=== PATIENT | female | born 1990 | race Caucasian/White ===

== ENCOUNTER 2018-08-18 15:16 | Emergency (ER) | payer OTHER, SELFPAY ==
[2018-08-18 15:23] VITALS: BP 102/56; PULSE 61; RESP 20; TEMP 36.4; O2SAT 100; BMI 28.9
[2018-08-18 15:29] VITALS: BP 102/56; PULSE 61; RESP 20; TEMP 36.4; O2SAT 100; BMI 28.9
--- NOTE | 2018-08-18 15:50 | HMH.EDUTC ---
[facility] [place] Disposition Clinical Impression: Dental abscess, Pain due to dental caries Disposition: Home, Self-Care Condition on Discharge: Good Instructions: Tooth Decay, Tooth Abscess, DI for Dental Pain Additional Instructions: Take medication as prescribed *Call Dr Connelly and try to make appointment for further evaluation and treatment of dental abscess and pain Return if needed Straight to ER if any life threatening symptoms Follow up with family doctor if needed Over the counter Motrin and Tylenol for pain and fever as directed on bottle Prescriptions: Penicillin V Potassium 500 mg PO Q6H 10 Days #40 tab Referrals: Provider,Referral, [Primary Care Provider] - As needed Newton Connelly [Referring] - (call and make appointment) Time of Disposition: 16:02 Medical Decision Making - Paul Inquiry Pt receiving controlled substance: No Paul was queried for this patient: No Vital Signs: 08/18/18 15:23 08/18/18 15:29 Temperature 97.6 F 97.6 F Temperature Source Oral Oral Pulse Rate [Left Radial] 61 61 Respiratory Rate 20 20 Blood Pressure [Right Arm] 102/56 L 102/56 L Blood Pressure Mean [Right Arm] 71 71 Blood Pressure Source [Right Arm] Automatic Cuff Automatic Cuff Blood Pressure Position [Right Arm] Sitting Sitting 02 Sat by Pulse Oximetry 100 100 Oxygen Delivery Method Room Air Room Air Orders (Tests/Meds): ED MEDICATIONS Discontinued Medications Generic Name Dose Route Start Last Admin Trade Name Heq PRN Reason Stop Dose Admin Benzocaine/Butamben/Tetracaine HCl 1 gm 08/18/18 15:50 08/18/18 16:01 Cetacaine [place] TP 08/18/18 15:51 1 gm ONCE ONE Administration Lidocaine HCl 15 ml 08/18/18 15:50 08/18/18 16:01 Lidocaine 2% Viscous Solution 15ml Udc PO 08/18/18 15:51 15 ml ONCE ONE Administration [facility] [place] HPI - General Stated complaint: Tooth Pain Time Seen by Provider: 08/18/18 15:40 Mode of Arrival: Family Vehicle Source of Information: Patient Limitations: No Limitations Description of Symptoms (Recalled from Triage Doc. by RN): c/o right sided tooth pain HEENT Symptoms (Recalled from RN notes): Yes Resp Symptoms (Recalled from RN notes): No Skin Symptoms (Recalled from RN notes): No MS Symptoms (Recalled from RN notes): No Functional Status (Recalled from RN notes): N/A - History of Present Illness Provider Complaint: Patient state that her teeth on the top are broken off at the gumline State that she has been having dental pain along with swelling and redness in her gums State that she thinks they area getting infected State that she hasn't had any insurance to get them worked on - Related Data Home Medications Medication Instructions Recorded Confirmed Buspirone HCl [Buspar 5mg tablet] 5 mg PO BID 08/18/18 08/18/18 Citalopram Hydrobromide [Celexa] 30 mg PO DAILY 08/18/18 08/18/18 risperiDONE [Risperdal 0.5mg 0.5 mg PO BID 08/18/18 08/18/18 tablet] Previous Rx's Medication Instructions Recorded Penicillin V Potassium 500 mg PO Q6H 10 Days #40 tab 08/18/18 Allergies Allergy/AdvReac Type Severity Reaction Status Date / Time No Known Allergies Allergy Verified 08/18/18 15:32 - Worker's Comp Is this a Worker's Comp case?: No [facility] History - Hepatitis A Screen Drug use history?: No High risk sexual behaviors?: No History of sexually transmitted infection?: No Currently employed?: No Childcare worker?: No Do you have indoor plumbing?: Yes Do you have electricity?: Yes Attestation statement:: This patient has been screened for Hepatitis A risk factors. I have reviewed the patient's past medical history: Yes Laterality Cases: Bilateral: Tonsillectomy - Social History Smoking Status: Current every day smoker Tobacco Type: cigarettes # Packs/Day (cigarettes): 1 Alcohol Intake: never Occupational Status: other - Psychiatric History Expresses thoughts of harming self/others: None Suicide Plan Description: No Plan ROS Obtained: Alex
--- NOTE | 2018-08-18 15:53 | ED_ITS ---
[facility] [place] Disposition Clinical Impression: Dental abscess, Pain due to dental caries Disposition: Home, Self-Care Condition on Discharge: Good Instructions: Tooth Decay, Tooth Abscess, DI for Dental Pain Additional Instructions: Take medication as prescribed *Call Dr Connelly and try to make appointment for further evaluation and treatment of dental abscess and pain Return if needed Straight to ER if any life threatening symptoms Follow up with family doctor if needed Over the counter Motrin and Tylenol for pain and fever as directed on bottle Prescriptions: Penicillin V Potassium 500 mg PO Q6H 10 Days #40 tab Referrals: Provider,Referral, [Primary Care Provider] - As needed Newton Connelly [Referring] - (call and make appointment) Time of Disposition: 16:02 Medical Decision Making - Paul Inquiry Pt receiving controlled substance: No Paul was queried for this patient: No Vital Signs: 08/18/18 15:23 08/18/18 15:29 Temperature 97.6 F 97.6 F Temperature Source Oral Oral Pulse Rate [Left Radial] 61 61 Respiratory Rate 20 20 Blood Pressure [Right Arm] 102/56 L 102/56 L Blood Pressure Mean [Right Arm] 71 71 Blood Pressure Source [Right Arm] Automatic Cuff Automatic Cuff Blood Pressure Position [Right Arm] Sitting Sitting 02 Sat by Pulse Oximetry 100 100 Oxygen Delivery Method Room Air Room Air Orders (Tests/Meds): ED MEDICATIONS Discontinued Medications Generic Name Dose Route Start Last Admin Trade Name Heq PRN Reason Stop Dose Admin Benzocaine/Butamben/Tetracaine HCl 1 gm 08/18/18 15:50 08/18/18 16:01 Cetacaine [place] TP 08/18/18 15:51 1 gm ONCE ONE Administration Lidocaine HCl 15 ml 08/18/18 15:50 08/18/18 16:01 Lidocaine 2% Viscous Solution 15ml Udc PO 08/18/18 15:51 15 ml ONCE ONE Administration [facility] [place] HPI - General Stated complaint: Tooth Pain Time Seen by Provider: 08/18/18 15:40 Mode of Arrival: Family Vehicle Source of Information: Patient Limitations: No Limitations Description of Symptoms (Recalled from Triage Doc. by RN): c/o right sided tooth pain HEENT Symptoms (Recalled from RN notes): Yes Resp Symptoms (Recalled from RN notes): No Skin Symptoms (Recalled from RN notes): No MS Symptoms (Recalled from RN notes): No Functional Status (Recalled from RN notes): N/A - History of Present Illness Provider Complaint: Patient state that her teeth on the top are broken off at the gumline State that she has been having dental pain along with swelling and redness in her gums State that she thinks they area getting infected State that she hasn't had any insurance to get them worked on - Related Data Home Medications Medication Instructions Recorded Confirmed Buspirone HCl [Buspar 5mg tablet] 5 mg PO BID 08/18/18 08/18/18 Citalopram Hydrobromide [Celexa] 30 mg PO DAILY 08/18/18 08/18/18 risperiDONE [Risperdal 0.5mg 0.5 mg PO BID 08/18/18 08/18/18 tablet] Previous Rx's Medication Instructions Recorded Penicillin V Potassium 500 mg PO Q6H 10 Days #40 tab 08/18/18 Allergies Allergy/AdvReac Type Severity Reaction Status Date / Time No Known
[2018-08-18 16:02] VITALS: BP 102/56; PULSE 61; RESP 20; TEMP 36.4; O2SAT 100
== END 2018-08-18 16:04 | disposition home or self-care (01) ==
PROVIDERS: Emergency Provider Nurse Practitioner
DX: K04.7 Periapical abscess without sinus (principal); F17.210 Nicotine dependence, cigarettes, uncomplicated
CPT/HCPCS: 99201

== ENCOUNTER 2022-02-07 09:49 | Emergency (ER) | payer MEDICAID, SELFPAY ==
[2022-02-07 09:51] VITALS: BP 120/81; PULSE 92; RESP 18; TEMP 36.8; O2SAT 100; BMI 31.1
--- NOTE | 2022-02-07 10:17 | PC.NURSE ---
1010 ED MD AT BEDSIDE
--- NOTE | 2022-02-07 10:25 | PC.NURSE ---
POST VOID BLADDER SCAN RESULTS 0
[2022-02-07 11:10] VITALS: BP 120/76; PULSE 84; RESP 17; TEMP 36.8; O2SAT 100
--- NOTE | 2022-02-07 11:17 | HMH.EDGENADL ---
Discharge Plan Disposition Patient Disposition: Home, Self-Care Condition: Fair Prescriptions Prescriptions: New gabapentin 100 mg capsule 100 mg PO TID PRN (Reason: pain) Qty: 30 0RF methocarbamol 750 mg tablet 750 mg PO Q6 PRN (Reason: Muscle Spasm) Qty: 30 0RF prednisone 20 mg tablet 20 mg PO DAILY Qty: 18 0RF Rx Instructions: Take 3 tablets daily for 3 days followed by 2 tablets daily for 3 days followed by 1 tablet daily for 3 days No Action buspirone 5 MG tablet 5 mg PO BID citalopram 20 MG tablet 30 mg PO DAILY risperidone 0.5 MG tablet 0.5 mg PO BID penicillin V potassium 500 MG tablet 500 mg PO Q6H 10 Days Qty: 40 0RF Referrals Follow up/Referrals: Provider,Referral, MD [Primary Care Provider] - See instructions Activity Restrictions/Add. Instructions Additional Instructions/Restrictions: Recommend that you call your primary care physician and talk about physical therapy versus imaging to evaluate for possible herniated disc. Clinical Impressions Clinical Impression: Acute lumbar radiculopathy Instructions Patient Instructions: DI for Lumbar Radiculopathy Discharge ED Provider: Aly Davies General Adult HPI General Chief complaint: PAIN Stated complaint: pain in Lt leg, numbness Time Seen by Provider: 02/07/22 10:00 Mode of Arrival: Ambulatory Limitations: No Limitations Description of Symptoms (Recalled from ER Triage Doc. by RN): BILATERAL UPPER LEG PAIN X 1 WEEK, NO ACCIDENT OR INJURY. PAIN GREATER ON LEFT THAN RIGHT History of Present Illness HPI narrative: Patient is a 32-year-old female who presents with leg pain. She states that about a week ago she started to get some left-sided upper leg pain. She says it is gotten a little bit worse and seems to be going down to about her knee now. She says that she was more concerned because she started getting numbness in that area as well and the numbness goes down the outside of her left leg on the top of her foot. She says that she has some minimal symptoms on the right side but it really seems to be more on the left. She denies any difficulty with ambulation. She describes the pain as a burning sensation. Denies any back pain. Denies any trauma. Denies any bowel or bladder incontinence. Denies any saddle anesthesia. Related Data Home Medications Medication Instructions Recorded Confirmed buspirone 5 mg tablet 5 mg PO BID Anxiety 08/18/18 08/18/18 citalopram 20 mg tablet 30 mg PO DAILY Depression 08/18/18 08/18/18 risperidone 0.5 mg tablet 0.5 mg PO BID Anxiety 08/18/18 08/18/18 Previous Rx's Medication Instructions Recorded penicillin V potassium 500 mg 500 mg PO Q6H 10 days #40 tabs 08/18/18 tablet gabapentin 100 mg capsule 100 mg PO TID PRN pain #30 caps 02/07/22 methocarbamol 750 mg tablet 750 mg PO Q6 PRN Muscle Spasm #30 02/07/22 tabs prednisone 20 mg tablet 20 mg PO DAILY #18 tabs 02/07/22 Allergies Allergy/AdvReac Type Severity Reaction Status Date / Time No Known Allergies Allergy Verified 08/18/18 15:32 [facility] Disclaimer: The information contained in this section may have been updated after the patient was seen, as this information can be updated by other users. Social History Smoking Status: Current every day smoker tobacco type: cigarettes packs per day: 1 alcohol intake: never current occupational status: other Travel in the last 8 weeks: None ROS Obtained: Yes All systems reviewed & no additional complaints except as documented A 14 point review of system was obtained and otherwise negative except per HPI Physical Exam General General appearance: alert and in no apparent distress Head Head exam: atraumatic, normocephalic and normal inspection Eye Eye exam: Present normal appearance, PERRL and EOMI ENT ENT exam: Present normal exam, normal oropharynx, mucous membranes moist, TM's normal bilaterally and normal external ear ex
== END 2022-02-07 11:10 | disposition home or self-care (01) ==
PROVIDERS: Emergency Provider Student in an Organized Health Care Education/Training Program
DX: M54.16 Radiculopathy, lumbar region (principal); R20.2 Paresthesia of skin; F17.210 Nicotine dependence, cigarettes, uncomplicated; Z79.52 Long term (current) use of systemic steroids; Z79.899 Other long term (current) drug therapy
CPT/HCPCS: 99283

== ENCOUNTER 2022-04-08 12:53 | Emergency (ER) | payer MEDICAID, SELFPAY ==
[2022-04-08 13:00] VITALS: BP 115/69; PULSE 76; RESP 16; TEMP 37.6; O2SAT 97; BMI 30.5
[2022-04-08 13:15] VITALS: BP 115/69; PULSE 96; O2SAT 98
[2022-04-08 13:32] LABS: Coronavirus 19, PCR Not Detected (NotDetected); Influenza B, PCR Not Detected (NotDetected)
[2022-04-08 13:42] VITALS: BP 107/64; PULSE 95; O2SAT 100
--- NOTE | 2022-04-08 13:43 | XR_ITS ---
PROCEDURE INFORMATION: Exam: XR Chest Exam date and time: 04/08/2022 1:40 PM Age: 32 years old Clinical indication: Cough TECHNIQUE: Imaging protocol: Radiologic exam of the chest. Views: 2 views. COMPARISON: No relevant prior studies available. FINDINGS: Lungs: There is some hazy opacification projecting over the mid and lower lung zones bilaterally in part secondary to breast attenuation artifact. There are small indistinct focal ground-glass opacities projecting over the right middle lobe and left lingula suspicious for focal bronchiolitis/pneumonitis. Pleural spaces: Unremarkable. No pleural effusion. No pneumothorax. Heart/Mediastinum: Cardiac silhouette is upper limits of normal in size and unremarkable in contour. Bones/joints: Unremarkable for age. IMPRESSION: Findings suspicious for focal bronchiolitis/pneumonitis right middle lobe and left lingula.
--- NOTE | 2022-04-08 13:43 | PC.NURSE ---
DR BARRAGAN AT BEDSIDE FOR EVALUATION
--- NOTE | 2022-04-08 13:48 | PC.NURSE ---
PT TO XR
--- NOTE | 2022-04-08 13:50 | HMH.EDGENADL ---
Discharge Plan Disposition Patient Disposition: Home, Self-Care Condition: Good Prescriptions Prescriptions: New levofloxacin 500 mg tablet 500 mg PO DAILY 7 Days Qty: 7 0RF benzonatate 100 mg capsule 100 mg PO TID PRN (Reason: cough) Qty: 20 0RF No Action buspirone 5 MG tablet 5 mg PO BID citalopram 20 MG tablet 30 mg PO DAILY risperidone 0.5 MG tablet 0.5 mg PO BID penicillin V potassium 500 MG tablet 500 mg PO Q6H 10 Days Qty: 40 0RF gabapentin 100 mg capsule 100 mg PO TID PRN (Reason: pain) Qty: 30 0RF methocarbamol 750 mg tablet 750 mg PO Q6 PRN (Reason: Muscle Spasm) Qty: 30 0RF prednisone 20 mg tablet 20 mg PO DAILY Qty: 18 0RF Rx Instructions: Take 3 tablets daily for 3 days followed by 2 tablets daily for 3 days followed by 1 tablet daily for 3 days Referrals Follow up/Referrals: Provider,Referral, MD [Primary Care Provider] - See instructions Activity Restrictions/Add. Instructions Additional Instructions/Restrictions: Tessalon as needed for cough. Tylenol as needed for pain or fever. Additional instructions for PNEUMONIA: Take antibiotics as prescribed. See your physician as soon as possible for further evaluation. Return immediately if you have an uncontrollable fever greater than 102 degrees, difficulty breathing or shortness of breath, persistent vomiting, or severe chest pain. Clinical Impressions Clinical Impression: Influenza A, Pneumonia Stand Alone Forms Stand Alone Forms: Work/School Release Instructions Patient Instructions: DI for Pneumonia -- Adult, DI for Influenza -- Adult Discharge ED Provider: Wyatt Rangel General Adult HPI General Chief complaint: Fever Stated complaint: No taste or smell,Cough,Bodyaches,weakness Time Seen by Provider: 04/08/22 13:36 Mode of Arrival: Ambulatory Source of Information: Patient Limitations: No Limitations Description of Symptoms (Recalled from ER Triage Doc. by RN): Presents with no taste, body aches, and chills x 1 wk. Reports 103.4 F fever Sat. History of Present Illness HPI narrative: The patient has been sick for 1 week. She has productive cough, headache, body aches, chills, fever up to 103.4. Her adopted mother is also being seen here for similar symptoms of 4 days duration. The patient is a smoker. No known exposures. States she has had COVID 4 times. She has had COVID-vaccine and booster. She has not had influenza vaccine. Related Data Home Medications Medication Instructions Recorded Confirmed buspirone 5 mg tablet 5 mg PO BID Anxiety 08/18/18 08/18/18 citalopram 20 mg tablet 30 mg PO DAILY Depression 08/18/18 08/18/18 risperidone 0.5 mg tablet 0.5 mg PO BID Anxiety 08/18/18 08/18/18 Previous Rx's Medication Instructions Recorded penicillin V potassium 500 mg 500 mg PO Q6H 10 days #40 tabs 08/18/18 tablet gabapentin 100 mg capsule 100 mg PO TID PRN pain #30 caps 02/07/22 methocarbamol 750 mg tablet 750 mg PO Q6 PRN Muscle Spasm #30 02/07/22 tabs prednisone 20 mg tablet 20 mg PO DAILY #18 tabs 02/07/22 benzonatate 100 mg capsule 100 mg PO TID PRN cough #20 caps 04/08/22 levofloxacin 500 mg tablet 500 mg PO DAILY 7 days #7 tabs 04/08/22 Allergies Allergy/AdvReac Type Severity Reaction Status Date / Time No Known Allergies Allergy Verified 08/18/18 15:[address] [facility] Disclaimer: The information contained in this section may have been updated after the patient was seen, as this information can be updated by other users. Social History Smoking Status: Current every day smoker tobacco type: cigarettes packs per day: 1 alcohol intake: never current occupational status: other Travel in the last 8 weeks: None ROS Obtained: Yes Systems reviewed as appropriate & no additional complaints except as documented Constitutional Constitutional: Reports body ache, Reports fever(s), Reports headache(s) and Denies weakness E
[2022-04-08 13:54] LABS: Influenza A, PCR Detected (NotDetected)
[2022-04-08 14:13] VITALS: BP 114/70; PULSE 88; O2SAT 99
[2022-04-08 14:35] LABS: Basophils # 0.1 K/mm3 (0-0.2); Basophils % 1.7 % (0.1-2.0); Eosinophils # 0.2 K/mm3 (0.0-0.4); Hematocrit 36.8 % (37.0-47.0); Lymphocytes % 24.3 % (10-50); Mean Corpuscular HGB Conc 32.6 g/dL (31.8-35.4); Mean Corpuscular Hemoglobin 30.3 pg (27.0-31.2); Mean Platelet Volume 7.5 fl (7.4-10.4); Monocytes # 0.4 K/mm3 (0.1-1.0); Monocytes % 4.9 % (1.7-9.3); Neutrophils # 5.5 K/mm3 (1.8-7.8); Neutrophils % 67.1 % (37.0-80.0); Platelet Count 366 K/mm3 (142-424); Red Blood Count 3.96 M/mm3 (4.20-5.40); Red Cell Distribution Width 14.1 % (11.5-17.5); White Blood Count 8.1 K/mm3 (4.8-10.8)
[2022-04-08 14:36] LABS: Chloride 111 mmol/L (98-107); Potassium 4.2 mmoL/L (3.5-5.1); Sodium 142 mmol/L (136-145)
[2022-04-08 14:39] LABS: Alanine Aminotransferase 41 U/L (12-78); Albumin Level 4.1 g/dl (3.5-5.0); Albumin/Globulin Ratio 1.1 (1.1-1.8); Alkaline Phosphatase 74 U/L (38-126); Anion Gap 10.2 mEq/L (5-15); Aspartate Amino Transferase 53 U/L (14-36); Bilirubin,Total 0.5 mg/dl (0.2-1.3); Blood Urea Nitrogen 8 mg/dl (7-17); Calcium 8.2 mg/dl (8.4-10.2); Carbon Dioxide 25 mmol/L (22.0-30.0); Creatinine Clearance Estimated 137 mL/min (50-200); Estimated Glomerular Filt Rate 96 ml/min (>60); GFR (African American) 117 ML/MIN (>60); Globulin 3.7 g/dL (1.3-3.2); Glucose 89 mg/dl (74-100); Total Protein,Serum 7.8 g/dl (6.3-8.2)
[2022-04-08 14:41] LABS: Lactic Acid < 0.5 mmol/L (0.7-2.1)
[2022-04-08 15:01] VITALS: BP 116/71; PULSE 87; RESP 18; TEMP 37.1; O2SAT 99
== END 2022-04-08 15:07 | disposition home or self-care (01) ==
PROVIDERS: Emergency Provider Emergency Medicine
DX: J09.X9 Influenza due to identified novel influenza A virus with other manifestations (principal); J18.9 Pneumonia, unspecified organism; F17.210 Nicotine dependence, cigarettes, uncomplicated
CPT/HCPCS: 71046; 80053; 83605; 85025; 87040; 99285; C9803; U0003; U0005

== ENCOUNTER 2023-01-15 12:39 | Emergency (ER) | payer MEDICAID, SELFPAY ==
[2023-01-15 12:41] VITALS: BP 124/67; PULSE 63; RESP 14; TEMP 36.7; O2SAT 96; BMI 34.7
[2023-01-15 13:09] VITALS: BP 111/69; PULSE 78; O2SAT 95
--- NOTE | 2023-01-15 13:16 | HMH.EDGENADL ---
Discharge Plan Disposition Patient Disposition: Home, Self-Care Condition: Good Prescriptions Prescriptions: No Action buspirone 5 MG tablet 5 mg PO BID citalopram 20 MG tablet 30 mg PO DAILY risperidone 0.5 MG tablet 0.5 mg PO BID penicillin V potassium 500 MG tablet 500 mg PO Q6H 10 Days Qty: 40 0RF gabapentin 100 mg capsule 100 mg PO TID PRN (Reason: pain) Qty: 30 0RF methocarbamol 750 mg tablet 750 mg PO Q6 PRN (Reason: Muscle Spasm) Qty: 30 0RF prednisone 20 mg tablet 20 mg PO DAILY Qty: 18 0RF Rx Instructions: Take 3 tablets daily for 3 days followed by 2 tablets daily for 3 days followed by 1 tablet daily for 3 days levofloxacin 500 mg tablet 500 mg PO DAILY 7 Days Qty: 7 0RF benzonatate 100 mg capsule 100 mg PO TID PRN (Reason: cough) Qty: 20 0RF Referrals Follow up/Referrals: Provider,Referral, MD [Primary Care Provider] - See instructions Activity Restrictions/Add. Instructions Additional Instructions/Restrictions: You were evaluated in the emergency department today. Please follow-up closely with your primary care provider. Take Tylenol and ibuprofen as needed for pain. Wear loosefitting clothing. Return to the emergency department for new or worsening symptoms. Clinical Impressions Clinical Impression: Meralgia paresthetica of both lower extremities Stand Alone Forms Stand Alone Forms: Work/School Release Instructions Patient Instructions: DI for Lumbar Radiculopathy Discharge ED Provider: Abiola Conner General Adult HPI General Chief complaint: Extremity Problem,Nontraumatic Stated complaint: PAIN ON RT SIDES OF LEGS, COMPLETELY NUMB Time Seen by Provider: 01/15/23 12:47 Mode of Arrival: Ambulatory Source of Information: Patient Limitations: No Limitations Description of Symptoms (Recalled from ER Triage Doc. by RN): c/o bilateral burning/firey with jolts of pain that started this morning, her legs gave out on her. STates she has had this numbness in bilateral legs for one year History of Present Illness HPI narrative: This patient is a 32-year-old female with a history of lumbar radiculopathy presenting to the emergency department for evaluation with concern for numbness and tingling to the lateral thighs. She states that she has had numbness nearly in her lower legs intermittently for approximate 1 year, and she has had some low back pain as well. She notes that she thought this was because she had been putting on weight. This morning, she woke up with numbness and tingling as well as burning to the lateral aspect of both of her thighs. No other neurologic symptoms elsewhere. No saddle anesthesia, incontinence, retention, or other concerns. She states that this morning when she first got up, she felt like her legs give out from under her. She has been able to walk since then without issue. No recent traumatic injuries, fevers, chills, or other concerns. No history of drug use or spinal surgeries. She does not note that she wears particularly restrictive clothing that would compress her hips. Related Data Home Medications Medication Instructions Recorded Confirmed buspirone 5 mg tablet 5 mg PO BID Anxiety 08/18/18 08/18/18 citalopram 20 mg tablet 30 mg PO DAILY Depression 08/18/18 08/18/18 risperidone 0.5 mg tablet 0.5 mg PO BID Anxiety 08/18/18 08/18/18 Previous Rx's Medication Instructions Recorded penicillin V potassium 500 mg 500 mg PO Q6H 10 days #40 tabs 08/18/18 tablet gabapentin 100 mg capsule 100 mg PO TID PRN pain #30 caps 02/07/22 methocarbamol 750 mg tablet 750 mg PO Q6 PRN Muscle Spasm #30 02/07/22 tabs prednisone 20 mg tablet 20 mg PO DAILY #18 tabs 02/07/22 benzonatate 100 mg capsule 100 mg PO TID PRN cough #20 caps 04/08/22 levofloxacin 500 mg tablet 500 mg PO DAILY 7 days #7 tabs 04/08/22 Allergies Allergy/AdvReac Type Severity Reaction Status Date / Time No Known Allergies Allergy Verifi
[2023-01-15 13:57] LABS: Urine Pregnancy, HCG Qual. Negative (Negative)
[2023-01-15 14:03] VITALS: BP 116/76; PULSE 87; RESP 16; TEMP 36.7; O2SAT 98
== END 2023-01-15 14:04 | disposition home or self-care (01) ==
PROVIDERS: Emergency Provider Emergency Medicine
DX: G57.13 Meralgia paresthetica, bilateral lower limbs (principal); F17.210 Nicotine dependence, cigarettes, uncomplicated
CPT/HCPCS: 81025; 96372; 99283

== ENCOUNTER 2023-01-24 14:22 | Emergency (ER) | payer MEDICAID, SELFPAY ==
[2023-01-24 14:25] VITALS: BP 104/62; PULSE 90; RESP 16; TEMP 36.7; O2SAT 98; BMI 34.7
[2023-01-24 15:20] LABS: Coronavirus 19, PCR Not Detected (NotDetected); Influenza A, PCR Not Detected (NotDetected); Influenza B, PCR Not Detected (NotDetected)
--- NOTE | 2023-01-24 15:57 | HMH.EDGENADL ---
Discharge Plan Disposition Patient Disposition: Home, Self-Care Condition: Good Prescriptions Prescriptions: New ondansetron 4 mg tablet,disintegrating 4 mg PO Q8H 4 Days Qty: 12 0RF ondansetron 4 mg tablet,disintegrating 4 mg PO Q8H 4 Days Qty: 12 0RF No Action buspirone 5 MG tablet 5 mg PO BID citalopram 20 MG tablet 30 mg PO DAILY risperidone 0.5 MG tablet 0.5 mg PO BID penicillin V potassium 500 MG tablet 500 mg PO Q6H 10 Days Qty: 40 0RF gabapentin 100 mg capsule 100 mg PO TID PRN (Reason: pain) Qty: 30 0RF methocarbamol 750 mg tablet 750 mg PO Q6 PRN (Reason: Muscle Spasm) Qty: 30 0RF prednisone 20 mg tablet 20 mg PO DAILY Qty: 18 0RF Rx Instructions: Take 3 tablets daily for 3 days followed by 2 tablets daily for 3 days followed by 1 tablet daily for 3 days levofloxacin 500 mg tablet 500 mg PO DAILY 7 Days Qty: 7 0RF benzonatate 100 mg capsule 100 mg PO TID PRN (Reason: cough) Qty: 20 0RF Referrals Follow up/Referrals: Kvng Blair DO [Primary Care Provider] - See instructions Clinical Impressions Clinical Impression: Acute viral syndrome Instructions Patient Instructions: DI for Viral Syndrome Discharge ED Provider: Daisy Devlin General Adult HPI General Chief complaint: Upper Respiratory Infection Stated complaint: congestion, cough ear pain st body ache lof Time Seen by Provider: 01/24/23 15:20 Mode of Arrival: Ambulatory Source of Information: Patient Limitations: No Limitations Description of Symptoms (Recalled from ER Triage Doc. by RN): 32 yo F presents with c/o sore throat, congestion, nausea, cough, inability to taste anything. pt reports symptoms began yesterday. History of Present Illness HPI narrative: 32-year-old female with no significant past medical history presents the ED with complaints of viral symptoms.32 yo F presents with c/o sore throat, congestion, nausea, cough, inability to taste anything. pt reports symptoms began yesterday. Patient also notes that she has been having diffuse body aches, headaches. 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 Related Data Home Medications Medication Instructions Recorded Confirmed buspirone 5 mg tablet 5 mg PO BID Anxiety 08/18/18 08/18/18 citalopram 20 mg tablet 30 mg PO DAILY Depression 08/18/18 08/18/18 risperidone 0.5 mg tablet 0.5 mg PO BID Anxiety 08/18/18 08/18/18 Previous Rx's Medication Instructions Recorded penicillin V potassium 500 mg 500 mg PO Q6H 10 days #40 tabs 08/18/18 tablet gabapentin 100 mg capsule 100 mg PO TID PRN pain #30 caps 02/07/22 methocarbamol 750 mg tablet 750 mg PO Q6 PRN Muscle Spasm #30 02/07/22 tabs prednisone 20 mg tablet 20 mg PO DAILY #18 tabs 02/07/22 benzonatate 100 mg capsule 100 mg PO TID PRN cough #20 caps 04/08/22 levofloxacin 500 mg tablet 500 mg PO DAILY 7 days #7 tabs 04/08/22 ondansetron 4 mg disintegrating 4 mg PO Q8H 4 days #12 tabs 01/24/23 tablet ondansetron 4 mg disintegrating 4 mg PO Q8H 4 days #12 tabs 01/24/23 tablet Allergies Allergy/AdvReac Type Severity Reaction Status Date / Time No Known Allergies Allergy Verified 08/18/18 15:32 [facility] Disclaimer: The information contained in this section may have been updated after the patient was seen, as this information can be updated by other users. Social History Smoking Status: Current every day smoker tobacco type: cigarettes packs per day: 1 alcohol intake: never current occupational status: other Travel in the last 8 weeks: None ROS Obtained: Yes All systems reviewed & no additional complaints except as documented Physical Exam General General appearance: alert and in no apparent distress Head Head exam: atraumatic, normocephalic and normal inspection Eye Eye exam: Present normal appearance, PERRL and EOMI; Absent scleral icterus or nystagmus ENT
[2023-01-24 16:09] LABS: Strep Scrn Group A (Rapid) Negative (Negative)
[2023-01-24 16:38] VITALS: BP 104/62; PULSE 90; RESP 16; TEMP 36.7
== END 2023-01-24 16:39 | disposition home or self-care (01) ==
PROVIDERS: Emergency Provider Emergency Medicine; PCP Internal Medicine
DX: R51.9 Headache, unspecified (principal); R05.9 Cough, unspecified; R09.81 Nasal congestion; R07.0 Pain in throat; R43.9 Unspecified disturbances of smell and taste; H92.09 Otalgia, unspecified ear; R11.0 Nausea; B34.9 Viral infection, unspecified; F17.210 Nicotine dependence, cigarettes, uncomplicated
CPT/HCPCS: 87430; 87636; 99283

== ENCOUNTER → 2023-01-30 12:08 | Outpatient (CLI) | payer MEDICAID, SELFPAY ==
[2023-01-30 12:14] LABS: Adenovirus,PCR Not Detected (NotDetected); Bordetella Pertussis Not Detected (NotDetected); Chlamydophila Pneumoniae, PCR Not Detected (NotDetected); Coronavirus 19, PCR Not Detected (NotDetected); Coronavirus 229E Not Detected (NotDetected); Coronavirus NL63 Not Detected (NotDetected); Coronavirus OC43 Not Detected (NotDetected); Coronovirus HKU1,PCR Not Detected (NotDetected); Human Metapneumovirus Not Detected (NotDetected); Influenza A, PCR Not Detected (NotDetected); Influenza AH1, 2009 Not Detected (NotDetected); Influenza AH1, PCR Not Detected (NotDetected); Influenza AH3,PCR Not Detected (NotDetected); Influenza B, PCR Not Detected (NotDetected); Parainfluenza 1, PCR Not Detected (NotDetected); Parainfluenza 2, PCR Not Detected (NotDetected); Parainfluenza 3, PCR Not Detected (NotDetected); Parainfluenza 4, PCR Not Detected (NotDetected); Respiratory Syncytial Virus Not Detected (NotDetected); Rhinovirus/Enterovirus Not Detected (NotDetected)
[2023-02-02 09:35] LABS: Mycoplasma Pneumoniae, PCR Not Detected (NotDetected)
== END ==
LOC: LAB 12:09
PROVIDERS: PCP Nurse Practitioner Family; Visit Provider Nurse Practitioner Family
DX: J20.8 Acute bronchitis due to other specified organisms (principal); R06.02 Shortness of breath; R09.89 Other specified symptoms and signs involving the circulatory and respiratory systems; R53.83 Other fatigue; F41.9 Anxiety disorder, unspecified; F17.210 Nicotine dependence, cigarettes, uncomplicated; F33.1 Major depressive disorder, recurrent, moderate; B34.9 Viral infection, unspecified
CPT/HCPCS: 87581; 87632; 87635; 87798

== ENCOUNTER 2023-03-23 08:20 | Emergency (ER) | payer MEDICAID, SELFPAY ==
[2023-03-23 08:40] VITALS: BP 107/74; PULSE 69; RESP 18; O2SAT 98; BMI 34.8
[2023-03-23 09:04] LABS: UTC Influenza A Antigen Negative (Negative); UTC Influenza B Antigen Negative (Negative)
--- NOTE | 2023-03-23 09:10 | ED_ITS ---
Discharge Plan Disposition Patient Disposition: Home, Self-Care Condition: Good Prescriptions Prescriptions: New ondansetron 4 mg tablet,disintegrating 4 mg PO Q8H PRN (Reason: nausea and vomiting) Qty: 6 0RF No Action Sublocade 100 mg/0.5 mL solution, extended rel syringe 100 mg SQ QWEEK albuterol sulfate 90 mcg/actuation aerosol powdr breath activated 2 inh inhalation Q4-6H PRN (Reason: shortness of breath or wheezing) Qty: 1 2RF prednisone 20 mg tablet 20 mg PO BID 5 Days Qty: 10 0RF naproxen 500 mg tablet 500 mg PO BID Qty: 30 0RF hydroxyzine pamoate [Vistaril] 25 mg capsule 25 mg PO TID PRN (Reason: itching) Qty: 60 2RF Caplyta 42 mg capsule 42 mg PO DAILY Qty: 30 2RF quetiapine [Seroquel] 50 mg tablet 50 mg PO DAILY Qty: 30 2RF Referrals Follow up/Referrals: Antonio Burr APRN [Primary Care Provider] - See instructions Activity Restrictions/Add. Instructions Additional Instructions/Restrictions: Monitor temperature. Seek treatment if fever develops. Follow-up immediately if new or worse symptoms worsen or no noticeable improvement over 48 hours. Increase fluids such as water, Gatorade, Powerade, juice or Pedialyte with limited formula/dietary in children No food is okay as long as you are drinking. Once ready to eat start bland such as bananas, rice, applesauce, toast. Contagious until no diarrhea, vomiting, fever times 48 hours without medication Avoid antidiarrheals unless told otherwise. Best to let the virus run its course. Follow-up immediately for new or worsening symptoms or no noticeable improvement over the next 48 hours. Clinical Impressions Clinical Impression: Nausea & vomiting Qualifiers: Vomiting type: unspecified Qualified Code(s): R11.2 - Nausea with vomiting, unspecified Diarrhea Qualifiers: Diarrhea type: unspecified type Qualified Code(s): R19.7 - Diarrhea, unspecified Stand Alone Forms Stand Alone Forms: Work/School Release Instructions Patient Instructions: Nausea and Vomiting-Adult, Diarrhea [facility]charge [facility] [place] General Stated complaint: Vomiting diarrhea ba olivares Mode of Arrival: Ambulatory Source of Information: Patient Limitations: No Limitations Time Seen by Provider: 03/23/23 09:10 Description of Symptoms (Recalled from Triage Doc. by RN): Pt's symptoms are vomiting, diarrhea, body aches, and OLIVARES. HEENT Symptoms (Recalled from RN notes): Yes Resp Symptoms (Recalled from RN notes): No Skin Symptoms (Recalled from RN notes): No MS Symptoms (Recalled from RN notes): No Functional Status (Recalled from RN notes): n/a History of Present Illness Provider Complaint: 33 yr old female presents for vomiting, diarrhea, body aches, and OLIVARES. Related Data Home Medications Medication Instructions Recorded Confirmed buprenorphine 100 mg/0.5 mL 100 mg SQ QWEEK 01/30/23 03/05/23 solution,exten.rel.subcutaneous syringe (Sublocade) Previous Rx's Medication Instructions Recorded albuterol sulfate 90 mcg/actuation 2 inh inhalation Q4-6H PRN 01/30/23 breath activated powder inhaler shortness of breath or wheezing #1 ea hydroxyzine pamoate 25 mg capsule 25 mg PO TID PRN itching #60 caps 03/05/23 (Vistaril) naproxen 500 mg tablet 500 mg PO BID #30 tabs 03/05/23 prednisone 20 mg tablet 20 mg PO BID 5 days #10 tabs 03/05/23 lumateperone 42 mg capsule 42 mg PO DAILY #30 caps 03/06/23 (Caplyta) quetiapine 50 mg tablet (Seroquel) 50 mg PO DAILY #30 tabs 03/06/23 ondansetron 4 mg disintegrating 4 mg PO Q8H PRN nausea and 03/23/23 tablet vomiting #6 tabs Allergies Allergy/AdvReac Type Severity Reaction Status Date / Time No Known Allergies Allergy Verified 03/23/23 08:54 Worker's Comp Is this a Worker's Comp case?: No [facility] Disclaimer: The information contained in this section may have been updated after the patient was seen, as this information can be updated by other users. Social History , [employer]) Smoking Status: Current every day smoker tobacco type: cigarettes packs per day: 1 alcohol intake: never current occupational status: other Travel in the last 8 weeks: None ROS Obtained: Yes All systems reviewed & no additional complaints except as documented Constitutional Constitutional: Reports system reviewed and no additional complaints, except as documented Eyes Eyes: Reports system reviewed and no additional complaints, except as documented ENT Ears, Nose, Mouth, and Throat: Reports system reviewed and no additional complaints, except as documented Cardiovascular Cardiovascular: Reports system reviewed and no additional complaints, except as documented Respiratory Respiratory: Reports system reviewed and no additional complaints, except as documented Gastrointestinal Gastrointestingal: Reports system reviewed and no additional complaints, except as documented, as per HPI, diarrhea, nausea and vomiting Musculoskeletal Musculoskeletal: Reports system reviewed and no additional complaints, except as documented Integumentary/Breasts Skin/Breast: Reports system reviewed and no additional complaints, except as documented Neurologic Neurologic: Reports system reviewed and no additional complaints, except as documented Endocrine Endocrine: Reports system reviewed and no additional complaints, except as documented Hematologic/Lymphatic Henatologic/Lymphatic: Reports system reviewed and no additional complaints, except as documented Allergic/Immunologic Allergic/Immunologic: Reports system reviewed and no additional complaints, except as documented Physical Exam General General appearance: alert and in no apparent distress Head Head exam: atraumatic Eye Eye exam: Present normal appearance and PERRL ENT ENT exam: Present normal exam and normal oropharynx Respiratory Respiratory exam: Present normal lung sounds bilaterally Cardiovascular Cardiovascular exam: Present regular rate and normal rhythm Abdominal Exam Abdominal exam: Present soft and normal bowel sounds Neurological Exam Neurological exam: Present alert and oriented X3 Skin Skin exam: Present warm Medical Decision Making Medical Records Medical records reviewed: Yes I reviewed the patient's medical records. Paul Inquiry Pt receiving controlled substance: No Paul was queried for this patient: No Vital Signs: 03/23/23 08:40 Pulse Rate [Right Radial] 69 Respiratory Rate 18 Blood Pressure [Right Arm] 107/74 L Blood Pressure Mean [Right Arm] 85 Blood Pressure Source [Right Arm] Automatic Cuff Blood Pressure Position [Right Arm] Sitting 02 Sat by Pulse Oximetry 98 Oxygen Delivery Method Room Air Lab Data Lab results reviewed: Yes I reviewed the patient's lab results. Lab Results 03/23/23 08:52: Influenza Type A Ag Negative, Influenza Type B Ag Negative
[2023-03-23 09:25] VITALS: BP 107/74; PULSE 69; RESP 18; TEMP 37.1; O2SAT 98
== END 2023-03-23 09:25 | disposition home or self-care (01) ==
PROVIDERS: Emergency Provider Nurse Practitioner Family; PCP Nurse Practitioner Family
DX: R11.2 Nausea with vomiting, unspecified (principal); R19.7 Diarrhea, unspecified; R51.9 Headache, unspecified; M79.18 Myalgia, other site; F17.210 Nicotine dependence, cigarettes, uncomplicated
CPT/HCPCS: 87804; 99204; 99212; G0463